=== PATIENT | male | born 1975 | race Caucasian/White ===

== ENCOUNTER → 2018-08-09 11:38 | Outpatient (CLI) | payer OTHER, SELFPAY ==
--- NOTE | 2018-08-09 11:45 | XR_ITS ---
XR forearm RT 2V HISTORY: ITS.REASON: PAIN, PAINFUL PRONATION/SUPINATION ORDERING PHYSICIAN: Bella Celaya PATIENT AGE: 43 years COMPARISON: None FINDINGS: No obvious fracture, dislocation, lytic change or blastic change. Normal mineralization. Unremarkable soft tissues IMPRESSION: Negative forearm
--- NOTE | 2018-08-09 11:45 | XR_ITS ---
XR elbow RT min 3V HISTORY: ITS.REASON: PAIN, PAINFUL PRONATION/SUPINATION ORDERING PHYSICIAN: Bella Celaya FINDINGS: No fracture or dislocation is evident. There are minimal spurring at the coronoid process. Unremarkable soft tissues. IMPRESSION: 1. No acute finding. 2. Minimal osteoarthritic change with minimal spurring of the coronoid process
== END ==
PROVIDERS: PCP Physician Assistant; Visit Provider Physician Assistant
DX: M25.521 Pain in right elbow (principal); M79.631 Pain in right forearm
CPT/HCPCS: 73080; 73090

== ENCOUNTER → 2019-08-08 15:25 | Outpatient (CLI) | payer OTHER, SELFPAY ==
--- NOTE | 2019-08-08 15:30 | XR_ITS ---
PROCEDURE: XR ELBOW LT MIN 3V CLINICAL INDICATION: ROBERT ELBOW PAIN COMPARISON: ELBOWCMRT XR elbow RT min 3V from 08/09/2018 FINDINGS: No fracture or dislocation. No lytic or blastic change. There is normal mineralization. Hypertrophic changes are present at the coronoid process. There are also hypertrophic changes at the olecranon with an enthesophyte at the olecranon with a well-circumscribed lucency at the base of the enthesophyte Other findings:None. IMPRESSION: 1. Mild spurring of the coronoid process. 2. Prominent olecranon enthesophyte with a lucency at its base which could be due to an acute or subacute fracture of the enthesophyte. Dictated by: Rachid Bonilla MD 08/08/2019 16:26 Electronically signed by Rachid Bonilla MD in [place] 08/08/2019 16:26
--- NOTE | 2019-08-08 15:30 | XR_ITS ---
PROCEDURE: XR ELBOW RT MIN 3V CLINICAL INDICATION: ROBERT ELBOW PAIN COMPARISON: ELBOWCMRT XR elbow RT min 3V from 08/09/2018 FINDINGS: No fracture or dislocation. No lytic or blastic change. There is normal mineralization. The joint spaces are well-preserved. No significant degenerative/arthritic changes. No erosive changes evident. Other findings:None. IMPRESSION: Negative right elbow Dictated by: Rachid Bonilla MD 08/08/2019 16:25 Electronically signed by Rachid Bonilla MD in [place] 08/08/2019 16:25
== END ==
PROVIDERS: PCP Nurse Practitioner Family; Visit Provider Nurse Practitioner Family
DX: M25.522 Pain in left elbow (principal); M25.521 Pain in right elbow
CPT/HCPCS: 73080

== ENCOUNTER → 2019-11-21 10:55 | Outpatient (CLI) | payer OTHER, SELFPAY ==
[2019-11-21 12:16] LABS: Ferritin 521 ng/mL (8-388)
[2019-11-21 15:17] LABS: Basophils % 0.6 % (0.1-2.0); Eosinophils # 0.2 K/mm3 (0.0-0.4); Eosinophils % 2.1 % (0.1-12.0); Hematocrit 47.6 % (42.0-52.0); Hemoglobin 15.9 g/dL (14.1-18.0); Lymphocytes # 2.3 K/mm3 (0.7-4.5); Lymphocytes % 33.5 % (10-50); Mean Corpuscular HGB Conc 33.3 g/dL (31.8-35.4); Mean Corpuscular Hemoglobin 29.9 pg (27.0-31.2); Mean Corpuscular Volume 89.8 fl (80-94); Mean Platelet Volume 8.5 fl (7.4-10.4); Monocytes # 0.6 K/mm3 (0.1-1.0); Monocytes % 8.6 % (1.7-9.3); Neutrophils # 3.8 K/mm3 (1.8-7.8); Neutrophils % 55.2 % (37.0-80.0); Platelet Count 308 K/mm3 (142-424); Red Cell Distribution Width 12.9 % (11.5-17.5); White Blood Count 6.8 K/mm3 (4.8-10.8)
[2019-11-21 15:43] LABS: Erythrocyte Sedimentation Rate 7 mm/hr (0-15)
[2019-11-21 17:23] LABS: Alanine Aminotransferase 43 U/L (21-72); Albumin/Globulin Ratio 1.2 (1.1-1.8); Alkaline Phosphatase 80 U/L (46-116); Anion Gap 15.4 mEq/L (5-15); Aspartate Amino Transferase 23 U/L (15-37); Bilirubin,Total 0.7 mg/dL (0.2-1.0); Blood Urea Nitrogen 17 mg/dL (7-18); Calcium 9.1 mg/dL (8.5-10.1); Carbon Dioxide 27 mmol/L (21.0-32.0); Chloride 106 mmol/L (98-107); Creatinine,Serum 1.04 mg/dL (0.70-1.30); Estimated Glomerular Filt Rate 78 ml/min (>60); Ferritin 535 ng/mL (8-388); GFR (African American) 94 ML/MIN (>60); Globulin 3.3 gm/dl (1.3-3.2); Glucose 90 mg/dL (74-106); Potassium 4.4 mmoL/L (3.5-5.1); Sodium 144 mmol/L (137-145); Thyroid Stimulating Hormone 0.67 uIU/ml (0.358-3.740); Total Protein,Serum 7.3 g/dL (6.4-8.2)
[2019-11-21 17:34] LABS: C-Reactive Protein < 0.2 mg/dL (0.0-0.9)
[2019-11-23 07:54] LABS: Iron 110 ug/dL (38-169); UIBC 207 ug/dL (111-343)
[2019-11-23 19:10] LABS: Iron Saturation 35 % (15-55); Transferrin 248 mg/dL (200-370)
[2019-11-25 13:13] LABS: Anti-Centromere B Antibodies <0.2 AI (0.0-0.9); Anti-Jo-1 <0.2 AI (0.0-0.9); Anti-Smith Antibody 0.2 AI (0.0-0.9); Antichromatin Antibodies <0.2 AI (0.0-0.9); Antiscleroderma-70 Antibodies <0.2 AI (0.0-0.9); RNP Antibodies <0.2 AI (0.0-0.9); Sjogren's Anti-SS-A <0.2 AI (0.0-0.9); Sjogren's Anti-SS-B <0.2 AI (0.0-0.9)
[2019-11-25 20:59] LABS: Anti-DNA (DS) Ab Qn <1 IU/mL (0-9)
== END ==
PROVIDERS: Visit Provider Nurse Practitioner Family
DX: E83.10 Disorder of iron metabolism, unspecified (principal); R53.83 Other fatigue; R79.89 Other specified abnormal findings of blood chemistry; G25.81 Restless legs syndrome; G47.00 Insomnia, unspecified; G47.19 Other hypersomnia; G47.30 Sleep apnea, unspecified; G47.9 Sleep disorder, unspecified; R06.81 Apnea, not elsewhere classified; Z68.31 Body mass index [BMI] 31.0-31.9, adult
CPT/HCPCS: 36415; 80053; 82728; 83540; 83550; 84443; 84466; 85025; 85651; 86140; 86225; 86235

== ENCOUNTER → 2019-12-04 20:05 | Outpatient (CLI) | payer OTHER, SELFPAY | PROVIDERS: Visit Provider Nurse Practitioner Family | DX: G47.33 Obstructive sleep apnea (adult) (pediatric) (principal); R40.0 Somnolence; G47.00 Insomnia, unspecified; R06.83 Snoring; R51 Headache; G25.81 Restless legs syndrome | CPT/HCPCS: 95810 ==

== ENCOUNTER → 2020-11-17 13:55 | Outpatient (CLI) | payer OTHER, SELFPAY ==
[2020-11-17 14:16] LABS: Chloride 106 mmol/L (98-107); Potassium 4.6 mmoL/L (3.5-5.1); Sodium 140 mmol/L (136-145)
[2020-11-17 14:18] LABS: Blood Urea Nitrogen 19 mg/dl (9-20); Estimated Glomerular Filt Rate 81 ml/min (>60); GFR (African American) 98 ML/MIN (>60)
[2020-11-17 14:19] LABS: Alanine Aminotransferase 38 U/L (12-78); Albumin Level 4.6 g/dl (3.5-5.0); Albumin/Globulin Ratio 1.5 (1.1-1.8); Alkaline Phosphatase 88 U/L (38-126); Anion Gap 12.6 mEq/L (5-15); Aspartate Amino Transferase 28 U/L (17-59); Bilirubin,Total 0.6 mg/dl (0.2-1.3); Calcium 9.8 mg/dl (8.4-10.2); Carbon Dioxide 26 mmol/L (22.0-30.0); Chol/HDL Ratio 3.7 (1-3.5); Cholesterol 227 mg/dl (140-200); Globulin 3.1 g/dL (1.3-3.2); Glucose 127 mg/dl (74-100); HDL Cholesterol 61 mg/dl (40-60); Total Protein,Serum 7.7 g/dl (6.3-8.2); Triglycerides 187 mg/dl (30-150); VLDL Cholesterol 37 mg/dL (0-40)
[2020-11-17 14:30] LABS: Basophils # 0.1 K/mm3 (0-0.2); Basophils % 0.7 % (0.1-2.0); Eosinophils # 0.2 K/mm3 (0.0-0.4); Hematocrit 47.6 % (42.0-52.0); Hemoglobin 15.8 g/dL (14.1-18.0); Lymphocytes # 2.6 K/mm3 (0.7-4.5); Lymphocytes % 34.6 % (10-50); Mean Corpuscular HGB Conc 33.1 g/dL (31.8-35.4); Mean Corpuscular Hemoglobin 29.7 pg (27.0-31.2); Mean Corpuscular Volume 89.5 fl (80-94); Mean Platelet Volume 8.7 fl (7.4-10.4); Monocytes # 0.6 K/mm3 (0.1-1.0); Monocytes % 7.9 % (1.7-9.3); Neutrophils # 4.1 K/mm3 (1.8-7.8); Neutrophils % 54.9 % (37.0-80.0); Platelet Count 305 K/mm3 (142-424); Red Blood Count 5.32 M/mm3 (4.60-6.20); Red Cell Distribution Width 13.1 % (11.5-17.5); White Blood Count 7.4 K/mm3 (4.8-10.8)
[2020-11-17 14:36] LABS: 25-OH Vitamin D, Total 31.6 ng/mL (30-100)
[2020-11-17 14:51] LABS: Thyroid Stimulating Hormone 0.92 uIU/mL (0.465-4.68)
[2020-11-17 16:02] LABS: Hemoglobin A1C 5.4 % (4.0-6.0)
== END ==
PROVIDERS: Visit Provider Physician Assistant
DX: Z00.00 Encounter for general adult medical examination without abnormal findings (principal); R73.09 Other abnormal glucose; Z79.899 Other long term (current) drug therapy
CPT/HCPCS: 80053; 80061; 82306; 83036; 84439; 84443; 85025

== ENCOUNTER → 2020-11-17 17:46 | Outpatient (CLI) | payer OTHER, SELFPAY | PROVIDERS: PCP Physician Assistant; Visit Provider Physician Assistant | DX: M54.5 Low back pain (principal) ==

== ENCOUNTER → 2020-11-18 13:45 | Outpatient (CLI) | payer OTHER, SELFPAY ==
--- NOTE | 2020-11-18 13:49 | XR_ITS ---
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 No acute fracture or dislocation. No lytic or blastic change. There is degenerative disc disease at L2-L3 and L5-S1. There are mild facet arthritic changes at L5-S1. Hypertrophic changes with sclerosis noted at the SI joint on the left with bony hypertrophy inferiorly. Mild osteoarthritic changes are present involving the hips. Other findings:None. IMPRESSION: 1. Degenerative changes of the lumbar spine as described above. 2. 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
== END ==
PROVIDERS: PCP Physician Assistant; Visit Provider Physician Assistant
DX: M54.5 Low back pain (principal)
CPT/HCPCS: 72110

== ENCOUNTER → 2021-06-15 17:02 | Outpatient (CLI) | payer OTHER, SELFPAY | PROVIDERS: Visit Provider Nurse Practitioner Family | DX: Z20.822 Contact with and (suspected) exposure to COVID-19 (principal); A49.1 Streptococcal infection, unspecified site; J02.0 Streptococcal pharyngitis | CPT/HCPCS: 87070; 87186; U0003 ==

== ENCOUNTER → 2021-10-12 11:35 | Outpatient (CLI) | payer OTHER, SELFPAY | PROVIDERS: Visit Provider Nurse Practitioner | DX: Z20.822 Contact with and (suspected) exposure to COVID-19 (principal) | CPT/HCPCS: C9803; U0003; U0005 ==

== ENCOUNTER → 2022-02-19 07:56 | Outpatient (CLI) | payer OTHER, SELFPAY ==
--- NOTE | 2022-02-19 07:56 | MR_ITS ---
FINAL REPORT CLINICAL HISTORY: chronic low back pain x's 3 years. gotten worse recently. 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 burning sensation in back. numbness, pain and burning radiates down bilateral extremities. worse on right side. FINDINGS: Multiplanar MR imaging of the lumbar spine was performed without contrast. On the sagittal T2-weighted images, disc degeneration is seen at several levels. The vertebral alignment is normal. There is no evidence of fracture. The conus has an unremarkable appearance. L1-2: There is no significant canal stenosis or neural foraminal narrowing. L2-3: An annular bulge is present. There is no significant canal stenosis or neural foraminal narrowing L3-4: An annular bulge is present. There is no significant canal stenosis or neural foraminal narrowing. L4-5: There is no significant canal stenosis or neural foraminal narrowing. L5-S1: An annular bulge is present. There is a central/right paracentral disc protrusion which contacts the S1 nerve roots and mildly displaces the right nerve root. There is mild right neural foraminal narrowing. Note is made of spurring of the sacroiliac joints and of the, left greater than right. IMPRESSION: Multilevel degenerative disc disease most pronounced at L5-S1 with areas of neural foraminal narrowing. Central/right paracentral disc protrusion at L5-S1 contacts the S1 nerve roots and mildly displaces the right nerve root. Reviewed, Interpreted and Dictated by Ivan Geiger III, MD Transcribed by Rika Peterson Authenticated by Ivan Geiger III, MD on 02/21/2022 07:50:39 AM [facility]
== END ==
PROVIDERS: PCP Emergency Medicine; Visit Provider Emergency Medicine
DX: M54.50 Low back pain, unspecified (principal)
CPT/HCPCS: 72148; 76376

== ENCOUNTER → 2022-04-25 11:19 | Outpatient (POV) | payer OTHER, SELFPAY ==
[2022-04-25 13:03] VITALS: BP 135/83; PULSE 53; RESP 18; TEMP 36.8; O2SAT 98; BMI 29.5
--- NOTE | 2022-04-25 14:37 | HMH.PMCON ---
Assessment and Plan (1) Low back pain Status: Acute Category: Medical Code(s): M54.50 - Low back pain, unspecified (2) Lower extremity pain Status: Acute Category: Medical Code(s): M79.606 - Pain in leg, unspecified (3) DDD (degenerative disc disease), lumbar Status: Acute Category: Medical Code(s): M51.36 - Other intervertebral disc degeneration, lumbar region - Assessment and plan all Dx Assessment and Plan for all problems:: Patient has significant pain in his low back radiating to his right lower extremity. Patient was nontender on palpation during exam. His MRI of his lumbar did show degenerative generative disc disease with pronounced L5-S1 areas of neural foraminal narrowing. I have discussed with the patient regarding a lumbar epidural steroid injection based off his symptoms and imaging. Risk and benefits were discussed with the patient the patient would like to proceed forward with this injection at this time. Patient is not currently taking any blood thinners. I have also discussed with the patient regarding starting diclofenac 75 mg twice daily. I have counseled him on not taking any other NSAIDs while taking this medication. Patient will be scheduled for a lumbar epidural steroid injection at L4-L5 at today's visit. Patient has been instructed to contact the clinic with any concerns before the next appointment. Dr. Cedillo has reviewed this note and agrees with this plan of care. This note was dictated using voice recognition software and make contain errors or omissions. HPI - Data of Consult Patient: new to practice Consult date: 04/25/22 Requesting Physician: SHAUN Guillermo Primary Care Provider: Dr. Mcgarry - Consult Narrative Reason for consult: Low back pain, right gluteal pain, right lower extremity pain History of present illness: Mr. Peña is a pleasant 46 year old male presents today as a new patient. He is a referral from Dr. Mcgarry's office. Patient is reporting low back pain, right gluteal pain, right lower extremity pain. He states he has had this pain for couple years now. He rates his pain today as 6 out of 10. He describes the pain as a pressure sensation, that is a constant shooting pain that radiates to his right ankle. He states occasionally he will have similar pain on his left side. He said pain is aggravated by prolonged activity or prolonged sitting. He states being more active does seem to help with his pain. He does do daily home exercises with moderate relief. He has also tried unmn-nue-gallfne Tylenol, ibuprofen and oral steroids with minimal relief. Patient has also tried gabapentin but did not feel like this was helping and felt groggy when he would wake up in the mornings. Patient denies any chiropractor history. Patient has had physical therapy in the past but due to his work schedule it was hard to get scheduled as well as he felt he got no relief from this when he did go. Patient denies any trauma or injury. Patient denies any change to the location or type of pain since it started. Patient has been in the in the past. His Amauri is [id number]. Is been reviewed and is appropriate. CC: SHAUN Guillermo [facility] History I have reviewed the patient's past medical history: Yes Medical History: Reports:: Anxiety, Gastroesophageal Reflux Disease(GERD), Hyperlipidemia Denies:: Diabetes Mellitus Type 2 *Have you ever received a pneumonia vaccine?: Yes *Have you received a flu vaccine this season?: Yes Other Medical History: Reports: Arthritis, Other Other Surgeries: Yes: Hernia Repair, Other - *Social History Smoking Status: Former smoker Alcohol Intake: never Alcohol Intake Frequency:: a few times a week Substance Use Type: denies use *Occupational Status:: other Housing: house Household Members: family *Travel in the last 8 weeks: None - Psychiatric History Pschychiatric History:: Reports:: Anxiety Family Hx:: Coronary Artery Disease Revie
== END ==
PROVIDERS: Visit Provider Student in an Organized Health Care Education/Training Program
DX: M51.36 Other intervertebral disc degeneration, lumbar region (principal); M79.606 Pain in leg, unspecified
CPT/HCPCS: 99202; G0463

== ENCOUNTER 2022-06-07 07:40 | Day surgery (SDC) | payer OTHER, SELFPAY ==
[2022-06-07 07:56] VITALS: BP 144/81; PULSE 44; O2SAT 97
[2022-06-07 08:00] VITALS: BP 140/77; PULSE 49; RESP 20; TEMP 36.6; O2SAT 98; BMI 29.5
[2022-06-07 08:17] VITALS: BP 181/85; PULSE 67; RESP 18; O2SAT 97
[2022-06-07 08:22] VITALS: BP 181/85; PULSE 70; RESP 18; O2SAT 97
--- NOTE | 2022-06-07 08:45 | EXP.PAIN.PRO ---
Procedure Date: 06/07/22 Time: 08:45 Anesthesiologist:: Michael Mccray CRNA Complications:: None Pre-procedure Diagnosis:: Degenerative disc lumbar spine multilevels. Lumbar radiculopathy Post-procedure Diagnosis:: Same Indications for Procedure:: Patient is a very pleasant 46-year-old male who comes our clinic today for his initial lumbar epidural steroid injection at the L4-5 level. Patient planes of low back pain as well as bilateral hip and leg radicular symptoms at times. He rates his pain 6/10 today. Procedure Details:: Procedure: Lumbar epidural steroid injection under fluoroscopy Informed consent was obtained and the risks and benefits of the procedure were explained to the patient. The patient was taken to the procedure room and noninvasive monitors placed, including noninvasive blood pressure cuff and pulse oximeter. The back was viewed using C-arm Fluoroscopy and prepped using Betadine as a cleansing solution and the L4-L5 interspace was palpated. Skin and subcutaneous tissues were anesthetized using lidocaine 1.5% and a 25-gauge needle. After this, an 18-gauge Touhy epidural needle was placed into the L4-L5 interspace and advanced using fluoroscopic guidance and loss of resistance to air until the epidural space was encountered. After confirmation of needle placement in the epidural space, with dye, a solution containing lidocaine 1.5%, 4 mL and Depo-Medrol 80 mg were incrementally injected into the lumbar epidural space. The patient tolerated the procedure well with no complications. The patient was observed in the Pain Clinic and then discharged home neurologically intact. Plan and Disposition:: Patient was discharged without incident.
== END 2022-06-07 08:33 | disposition home or self-care (01) ==
LOC: SC.PAINP 07:42
PROVIDERS: PCP Physician Assistant; Visit Provider Nurse Anesthetist, Certified Registered
DX: M51.16 Intervertebral disc disorders with radiculopathy, lumbar region (principal)
CPT/HCPCS: 62323; J1040

== ENCOUNTER 2022-08-07 20:13 | Emergency (ER) | payer OTHER, SELFPAY ==
[2022-08-07 20:14] VITALS: BP 151/81; PULSE 98; RESP 16; TEMP 36.4; O2SAT 96; BMI 30.7
--- NOTE | 2022-08-07 20:52 | HMH.EDBACK ---
Discharge Plan Disposition Patient Disposition: Home, Self-Care Chief Complaint: Back Pain/Injury Prescriptions Prescriptions: No Action gabapentin 100 mg capsule 100 mg PO TID Qty: 90 4RF atorvastatin 10 mg tablet 10 mg PO QHS Qty: 90 0RF diclofenac sodium 1 % gel 2 g TP QID Qty: 100 0RF Rx Instructions: apply to single elbow, wrist or hand; for hand includes palm/fingers/back of hand lidocaine 5 % adhesive patch,medicated 1 patch TP DAILY Qty: 30 0RF Rx Instructions: leave on most painful area for up to 12 hrs omeprazole 40 mg capsule,delayed release(DR/EC) 40 mg PO DAILY Qty: 90 0RF trazodone 50 mg tablet 100 mg PO QHS 90 Days Qty: 180 1RF prednisone 20 mg tablet 20 mg PO DAILY Qty: 18 0RF Rx Instructions: TID X 3 days, BID X 3 days, QD X 3 days prednisone 20 mg tablet 20 mg PO BID Rx Instructions: administer with food or milk amoxicillin 875 mg tablet 875 mg PO BID diclofenac sodium 75 mg tablet,delayed release (DR/EC) 75 mg PO BID montelukast [Singulair] 10 mg tablet 10 mg PO HS Referrals Follow up/Referrals: Jay Jay Mcgarry MD [Primary Care Provider] - See instructions Clinical Impressions Clinical Impression: Lumbar radiculopathy Instructions Patient Instructions: DI for Low Back Pain, DI for Back Pain With Sciatica Discharge ED Provider: Jay Jay Mcgarry Back Pain HPI General Chief Complaint: Back Pain/Injury Stated Complaint: back pain, RT leg pain Time Seen by Provider: 08/07/22 20:52 Mode of Arrival: Ambulatory Source of Information: Patient, Spouse and Medical Record Limitations: No Limitations Description of Symptoms (Recalled from ER Triage Doc. by RN): pt c/o lumbar pain radiating down rt leg x 10 days. pt has been seen by pcp and given a steroid pack with no relief History of Present Illness HPI Narrative: acute exacerbation of lumbat pain with rad to rt lower ext - has seen pcp and dr viramontes in past MD Complaint: back pain Onset (ago): day(s) Duration: constant Similar Symptoms Previously: Yes Location: lumbar spine Severity: moderate Quality: sharp Radiation: right leg Severity scale (1-10): 6 Exacerbating factors: movement Associated symptoms: denies other symptoms Pertinent Issues R/T Back Pain: Pain Management Services Treatments prior to arrival: NSAIDS, acetaminophen and other Related Data Home Medications Medication Instructions Recorded Confirmed amoxicillin 875 mg tablet 875 mg PO BID antibiotic 06/07/22 06/10/22 diclofenac sodium 75 mg 75 mg PO BID . 06/07/22 06/10/22 tablet,delayed release montelukast 10 mg tablet 10 mg PO HS Allergies 06/07/22 06/10/22 (Singulair) prednisone 20 mg tablet 20 mg PO BID . 06/07/22 06/10/22 Previous Rx's Medication Instructions Recorded atorvastatin 10 mg tablet 10 mg PO QHS hld #90 tabs 06/06/22 diclofenac sodium 1 % topical gel 2 g topical QID . #100 grams 06/06/22 lidocaine 5 % topical patch 1 patch topical DAILY Pain #30 ea 06/06/22 omeprazole 40 mg capsule,delayed 40 mg PO DAILY GERD #90 caps 06/06/22 release trazodone 50 mg tablet 100 mg PO QHS insomnia 90 days 06/06/22 #180 tabs gabapentin 100 mg capsule 100 mg PO TID Pain #90 caps 06/10/22 prednisone 20 mg tablet 20 mg PO DAILY #18 tabs 08/02/22 Allergies Allergy/AdvReac Type Severity Reaction Status Date / Time NO KNOWN ALLERGIES - NKA Allergy Mild Uncoded 06/10/22 15:53 PFSH [facility] Medical History (Updated 08/07/22 @ 21:41 by Jay Jay Mcgarry MD) Back Pain Gastroesophageal reflux disease Insomnia Social History Smoking Status: Never smoker alcohol intake: never substance use type: denies use current occupational status: other Travel in the last 8 weeks: None household members: family housing: house ROS Obtained: Yes All systems reviewed & no additional complaints except as doc
[2022-08-07 21:45] VITALS: BP 151/81; PULSE 54; RESP 16; TEMP 36.7; O2SAT 98
== END 2022-08-07 21:50 | disposition home or self-care (01) ==
PROVIDERS: Emergency Provider Emergency Medicine; PCP Emergency Medicine
DX: M54.16 Radiculopathy, lumbar region (principal); Z79.899 Other long term (current) drug therapy; K21.9 Gastro-esophageal reflux disease without esophagitis; G47.00 Insomnia, unspecified
CPT/HCPCS: 96374; 96375; 96376; 99284; J2405

== ENCOUNTER 2022-08-22 15:11 | Outpatient (RCR) | payer OTHER, SELFPAY | END 2022-08-22 16:30 | disposition home or self-care (01) | LOC: PT 15:11 | PROVIDERS: Visit Provider Physician Assistant | DX: M79.661 Pain in right lower leg (principal); S86.111A Strain of other muscle(s) and tendon(s) of posterior muscle group at lower leg level, right leg, initial encounter | CPT/HCPCS: 97760 ==

== ENCOUNTER → 2022-08-29 11:22 | Outpatient (POV) | payer OTHER, SELFPAY ==
--- NOTE | 2022-08-29 11:50 | EXP.PAIN.SOA ---
[facility] Pain Management SOAP Note Subjective:: Patient is a pleasant 47-year-old male who presents today for follow-up. We are currently treating the patient for degenerative disc disease of lumbar spine with lumbar radiculopathy symptoms. Today the patient rates his pain a 5 out of 10. He states the pain is all in his low back along the right side that radiates down his buttocks to his toes. Patient describes this as a achy, throbbing sensation that is worse with increased activity. Patient states that around August 02 he went on a 5 mile run along a trail in [facility] and approximately the next day started having significant pain at this site. Patient denies any significant trauma. Patient states that he was prescribed oral steroids which gave no improvement. Patient later was seen by Dr. Mcgarry's office who prescribed pain medication however he states that he did not notice significant relief with this either. Patient states this is affecting his ability to perform activities of daily living. He states he frequently cannot tolerate prolonged walking due to the pain. He is interested in injective therapy at today's visit. Patient has also tried heat and ice and topicals with no improvement of his symptoms. Patient continues to do at home exercising and stretching but is limited due to his worsening pain symptoms. Patient has previously had a lumbar epidural steroid injection at L4-L5 on 06/07/2022 that provided significant improvement however only lasted approximately 2-1/2 weeks. Patient states he was able to get back to his daily routine following this injection. His Amauri is [id number]. It has been reviewed and appropriate. Review of Systems: General: No recent weight changes, no fever, no sleep disturbances Respiratory: No cough, no shortness of air, no recurring pulmonary infections Cardiovascular/peripheral vascular: No chest pain, no palpitations, no edema, no shortness of breath Gastrointestinal: No new onset incontinence, normal bowel movements reported Genitourinary: No new onset incontinence Musculoskeletal: Low back pain, right leg pain Psychiatric: [Normal mood/affect] Neurological: [Denies weakness in extremities], [denies balance issues] Objective:: Physical Exam: General: Alert and oriented x3, no acute distress, pleasant and cooperative Lungs: Respirations even and unlabored, symmetrical chest expansion Eyes: PERRL Musculoskeletal: Flexion and extension of lumbar [spine] somewhat guarded secondary to pain, [antalgic gait noted]. Extreme point tenderness on right superior cluneal nerve Neurological: Speech clear, no gross sensory deficit Assessment:: Degenerative disc disease of lumbar spine with lumbar radiculopathy symptoms, right cluneal nerve root impingement Plan:: Patient is experiencing significant pain in his low back along the right side that radiates down his right buttocks to his toes along the right side. Patient did have limited range of motion of his lumbar spine during today's visit as well as extreme point tenderness along his right superior cluneal nerve. Patient has tried and failed oral medications, heat and ice, topicals, at home stretching and exercise. I have discussed with the patient that he may benefit from a diagnostic right cluneal nerve block. Risk and benefits were discussed with the patient. He would like to proceed forward with this plan of care. I have also discussed with the patient that if he does not get significant improvement of his symptoms following this injection that we may plan on a transforaminal epidural steroid injection on the right side. Patient is not on any blood thinners. We will schedule him for a diagnostic right cluneal nerve block. [facility] Medical History (Updated 08/23/22 @ 01:08 by Jay Jay Mcgarry MD) Back Pain Gastroesophageal reflux disease Insomnia Social History Smoking Status: Never smoker alcohol int
[2022-08-29 12:00] VITALS: BP 152/84; PULSE 53; RESP 18; O2SAT 97; BMI 29.5
== END ==
PROVIDERS: PCP Emergency Medicine; Visit Provider Nurse Practitioner Family
DX: M51.16 Intervertebral disc disorders with radiculopathy, lumbar region (principal)
CPT/HCPCS: 99212; G0463

== ENCOUNTER 2022-09-06 14:32 | Day surgery (SDC) | payer OTHER, SELFPAY ==
[2022-09-06 14:46] VITALS: BP 131/70; PULSE 50; RESP 18; TEMP 36.2; O2SAT 98; BMI 29.5
[2022-09-06 15:08] VITALS: BP 144/85; PULSE 73; RESP 18; O2SAT 98
[2022-09-06 15:15] VITALS: BP 133/80; PULSE 57; RESP 18; O2SAT 98
--- NOTE | 2022-09-27 14:13 | EXP.PAIN.PRO ---
Procedure Date: 09/06/22 Time: 11:00 Anesthesiologist:: Michael Mccray CRNA Complications:: None Pre-procedure Diagnosis:: Degenerative disc disease lumbar spine multilevels. Lumbar radiculopathy Post-procedure Diagnosis:: Same. Indications for Procedure:: This patient is a pleasant 47-year-old male that comes our clinic today for a scheduled superior cluneal nerve block. However, after further discussion with the patient it seems as though a lumbar epidural steroid injection of the L4-5 level would be appropriate. Patient has had this block in the past with significant improvement. He is requesting a repeat of the L4-5 lumbar epidural steroid injection. I think this is reasonable given the fact he has low back pain as well as bilateral hip and leg radicular symptoms. Procedure Details:: Procedure: Lumbar epidural steroid injection under fluoroscopy Informed consent was obtained and the risks and benefits of the procedure were explained to the patient. The patient was taken to the procedure room and noninvasive monitors placed, including noninvasive blood pressure cuff and pulse oximeter. The back was viewed using C-arm Fluoroscopy and prepped using Chloraprep as a cleansing solution and the L4-L5 interspace was palpated. Skin and subcutaneous tissues were anesthetized using lidocaine 1.5% and a 25-gauge needle. After this, an 18-gauge Touhy epidural needle was placed into the L4-L5 interspace and advanced using fluoroscopic guidance and loss of resistance to air until the epidural space was encountered. After confirmation of needle placement in the epidural space, with dye, a solution containing normal saline, 3 mL and Depo-Medrol 80 mg were incrementally injected into the lumbar epidural space. The patient tolerated the procedure well with no complications. The patient was observed in the Pain Clinic and then discharged home neurologically intact. Plan and Disposition:: Patient was discharged without incident.
== END 2022-09-06 15:15 | disposition home or self-care (01) ==
LOC: SC.PAINP 14:33
PROVIDERS: PCP Emergency Medicine; Visit Provider Nurse Anesthetist, Certified Registered
DX: M51.16 Intervertebral disc disorders with radiculopathy, lumbar region (principal)
CPT/HCPCS: 62323; J1040

== ENCOUNTER → 2022-09-13 14:18 | Outpatient (CLI) | payer OTHER, SELFPAY ==
--- NOTE | 2022-09-13 14:19 | US_ITS ---
FINAL REPORT CLINICAL HISTORY: right calf pain FINDINGS: US EXTREMITY, NONVASCULAR, LIMITED, ANATOMIC SPECIFIC Limited sonographic images were obtained of the right calf. The mid calf musculature is somewhat heterogeneous of uncertain significance. No mass or fluid collection is identified. IMPRESSION: Somewhat heterogeneous appearance of the mid calf musculature of uncertain significance. Myositis or muscle injury cannot be excluded. If indicated, MRI could further evaluate. Reviewed, Interpreted and Dictated by Ivan Geiger III, MD Transcribed by Guero Cisse Authenticated and [facility]
== END ==
PROVIDERS: PCP Physician Assistant; Visit Provider Physician Assistant
DX: M79.661 Pain in right lower leg (principal)
CPT/HCPCS: 76882

== ENCOUNTER 2022-11-15 08:47 | Outpatient (RCR) | payer OTHER, SELFPAY ==
--- NOTE | 2022-11-15 10:38 | HMH.PTOPEV ---
PT Outpatient Evaluation Rehab PT Outpatient Evaluation Start: 11/15/22 08:57 Freq: Status: Active Protocol: Document 11/15/22 08:57 DELL (Rec: 11/15/22 10:35 DELL [id number]) E-signed By Vilma Ghosh, PT Outpatient Therapy Subjective History Subjective History Pt is a 47 y/o male referred to PT for right leg pain and calf tear. Pt reports onset of right calf pain and exacerbation of right-sided sciatica after a run at the end of July. Pt reports he has a history of right-sided sciatic flare ups treated with injections and also has a history of right Achilles tendon repair ~4 years. Pt reports initially his calf was painful, felt squishy and was unable to contract the muscle with noted atrophy compared to the other leg. Pt denies any noted swelling. Pt also reports onset of numbness /tingling of the lateral aspect of the right foot since injury that comes and goes randomly. Pt reports in the past couple weeks he has started noticing improvements in pain, abiltiy to walk and is now able to contract his calf. Pt reports he had an MRI of the the right lower leg at [facility] showing increased signal intensity around the gastroc/soleus with possible myositis and/or tears. Pt reports he continues to have constant low back pressure as well but denies pain in the posterior leg. Pt reports he had a lumbar MRI last year in February, per report in records it shows Multilevel degenerative disc disease most pronounced at L5- S1 with areas of neural foraminal narrowing. Central/ right paracentral disc
== END 2022-11-15 08:50 | disposition home or self-care (01) ==
LOC: PT 08:47
PROVIDERS: Visit Provider Orthopaedic Surgery
DX: M79.661 Pain in right lower leg (principal); S86.811A Strain of other muscle(s) and tendon(s) at lower leg level, right leg, initial encounter
CPT/HCPCS: 97163

== ENCOUNTER → 2022-11-15 12:46 | Outpatient (CLI) | payer OTHER, SELFPAY ==
--- NOTE | 2022-11-15 12:50 | XR_ITS ---
FINAL REPORT CLINICAL HISTORY: bilateral elbow pain FINDINGS: Right elbow Three views were obtained. There is no acute fracture or dislocation. The joint spaces appear normal. No soft tissue abnormality is identified. IMPRESSION: No acute process. Reviewed, Interpreted and Dictated by Marvin Lockhart MD Transcribed by Rika Peterson Authenticated and [facility]
--- NOTE | 2022-11-15 12:50 | XR_ITS ---
FINAL REPORT CLINICAL HISTORY: bilateral shoulder pain FINDINGS: Left shoulder Three views were obtained. There is no acute fracture or dislocation. There are mild hypertrophic changes of osteoarthritis of the AC joint. There is an osteophyte along the undersurface of the acromion, asymmetrically more evident on the left and right. No soft tissue abnormality is identified. IMPRESSION: No acute process. Reviewed, Interpreted and Dictated by Marvin Lockhart MD Transcribed by Rika Peterson Authenticated and [facility]
--- NOTE | 2022-11-15 12:50 | XR_ITS ---
FINAL REPORT CLINICAL HISTORY: bilateral shoulder pain FINDINGS: Right shoulder Three views were obtained. There is no acute fracture or dislocation. There are mild hypertrophic changes of osteoarthritis of the AC joint. No soft tissue abnormality is identified. IMPRESSION: No acute process. Reviewed, Interpreted and Dictated by Marvin Lockhart MD Transcribed by Rika Peterson Authenticated and . [facility]
--- NOTE | 2022-11-15 12:50 | XR_ITS ---
FINAL REPORT CLINICAL HISTORY: bilateral elbow pain COMPARISON: 07/21/2019 FINDINGS: Left elbow Three views were obtained. There is no acute fracture or dislocation. There is a large osteophyte arising from the posterior margin of the olecranon. Small ossific densities are seen in the joint space, may represent intra-articular loose bodies. No acute soft tissue abnormality is identified. IMPRESSION: Findings may represent small intra-articular loose bodies. Reviewed, Interpreted and Dictated by Marvin Lockhart MD Transcribed by Rika Peterson Authenticated and [facility]
== END ==
PROVIDERS: PCP Physician Assistant; Visit Provider Physician Assistant
DX: M25.511 Pain in right shoulder (principal); M25.512 Pain in left shoulder; M25.521 Pain in right elbow; M25.522 Pain in left elbow
CPT/HCPCS: 73030; 73080

== ENCOUNTER → 2022-11-28 12:37 | Outpatient (CLI) | payer OTHER, SELFPAY ==
--- NOTE | 2022-11-28 12:38 | MR_ITS ---
FINAL REPORT CLINICAL HISTORY: Left elbow has osteophyte and loose bodies. lateral sided elbow pain. pain when bending and extending. symptoms xyears. FINDINGS: Multiplanar MR imaging of the left elbow was performed without contrast. The bony structures are intact without evidence of fracture, bone bruise or marrow edema. There is no evidence of osteochondral lesion. There are mild degenerative changes. There is a posterior olecranon enthesophyte. The ligaments appear intact. There is a small intrasubstance tear at the origin of the common extensor tendon. The common flexor tendon is intact. The biceps tendon is intact. There is a partial tear at the insertion of the triceps tendon. The brachialis tendon is intact. The musculature has an unremarkable appearance. No soft tissue mass or cyst is identified. There is a small joint effusion. No focal abnormality is identified of the ulnar nerve. IMPRESSION: Mild degenerative change with posterior olecranon enthesophyte. Partial tear at the insertion of the triceps tendon. Small intrasubstance tear at the origin of the common extensor tendon. Small joint effusion. Reviewed, Interpreted and Dictated by Ivan Geiger III, MD Transcribed by Guero Cisse Authenticated and [facility]
== END ==
PROVIDERS: PCP Physician Assistant; Visit Provider Physician Assistant
DX: M25.522 Pain in left elbow (principal)
CPT/HCPCS: 73221

== ENCOUNTER → 2023-07-21 15:12 | Outpatient (POV) | payer OTHER, SELFPAY ==
--- OUTSIDE RECORDS SUMMARY | 2023-07-21 15:14 | XMS_ITS | Clinical Summary ---
Author Name Unknown Address [address] [place] [place] [address] Phone Organization [facility] , [facility] Address [address] [place] [place] [address] Phone Care Team Providers Care Banjo Repair Person Name Role Phone Raphael OCONNOR, Yasmani Rodriguez Unavailable [phone] Isha Maria PA-C Primary Care Provider [phone] Reason for Visit and Chief Complaint The Chief Complaint is: Bilateral elbow pain Problems Includes: Problems addressed during this encounter and other active Problems Current Visit Onset Date Resolved Date Provider Jorge A gonzalez Status Bilateral Elbow Joint Pain 12/14/2022 Yasmani Lim MD Active Plan of Treatment NON SURGICAL PLAN: I reviewed the MRI images that were brought in with the patient of the left elbow which demonstrate a partial thickness triceps tear. I recommended he rest his elbow and take intermittent oral anti inflammatory's is he can tolerate them. As far as his right elbow, he also has a history of right shoulder issues. He had a discussion about treatment options. I believe his shoulder is a component of this as well. We will get him set up into specific therapy to work on this. We will follow this closely and see him back in 6 weeks for reassessment. All questions have been answered. - Last Documented On 12/20/2022 6:14PM ; [facility], [facility] Future Appointments Date Time Location Provi nuvia Follow Up 07/31/2023 3:00PM [facility] Orth[facility] paedics [facility] Senthil Garibay PA-C Instructions to patient Lose weight Last Documented On 10:38AM ; [facility], [facility] Ass
--- OUTSIDE RECORDS SUMMARY | 2023-07-21 15:14 | XMS_ITS | Clinical Summary ---
Author Name Unknown Address [address] [place] [address] [place] [address] Phone Organization [facility] , [facility] Address [address] [place] [address] Phone Care Team Providers Care Electrician Technician Name Role Phone Raphael OCONNOR, Yasmani Rodriguez Unavailable [phone] Isha Maria PA-C Primary Care Provider [phone] Reason for Visit and Chief Complaint Physician Specified Problems Includes: Problems addressed during this encounter and other active Problems All Visits Onset Date Resolved Date Provider Condition S tatus Bilateral Elbow Joint Pain 12/14/2022 Yasmani Lim MD Active Plan of Treatment Future Appointments Date Time Location Provi nuvia Follow Up 07/31/2023 3:00PM [facility] paedics [facility] B Deuce Garibay PA-C Assessments Includes: Assessments from this encounter No Assessments Recorded Medical Equipment - Implanted Devices Includes: Current Devices No Medical Equipment Recorded Medications Includes: Medications discussed during this encounter and other current Medications Current Medications (continue as prescribed) Atorvastatin Calcium 10 MG Oral Tablet 12/07/2022 Pr ovider: Diagnosis: Montelukast Sodium 10 MG Oral Tablet 12/03/2022 Prov ider: Diagnosis:
--- OUTSIDE RECORDS SUMMARY | 2023-07-21 15:14 | XMS_ITS | Clinical Summary ---
Author Name Unknown Address [address] [place] [address] Phone Organization [facility] , [facility] Address [address] [place] [address] Phone Care Team Providers Care Primer Inspector Name Role Phone Raphael OCONNOR, Yasmani Rodriguez Unavailable [phone] Isha Maria PA-C Primary Care Provider [phone] Reason for Visit and Chief Complaint The Chief Complaint is: Bilateral elbow pain Problems Includes: Problems addressed during this encounter and other active Problems All Visits Onset Date Resolved Date Provider Condition S tatus Bilateral Elbow Joint Pain 12/14/2022 Yasmani Lim MD Active Plan of Treatment I explained injection side effects locally which would include depigmentation and atrophy due to subcutaneous fat being dissolved. These will be permanent and he wishes to proceed with an injectionThe patient understands the risks and benefits of this injection. Consent was given. The medial portion of the elbow was prepped with alcohol. Aspiration confirmed that no vascular bed had been entered. I injected 40 mg of Kenalog and 4 cc of lidocaine into the origin of the common flexor tendon. The patient tolerated this well - Last Documented On 02/02/2023 10:26AM ; [facility], [facility] Future Appointments Date Time Location Provi nuvia Follow Up 07/31/2023 3:00PM [facility] paedics [facility] Senthil Garibay PA-C Instructions to patient Lose weight Last Documented On 3 9:45AM ; [facility], [facility] Assessments Includes: Assessments from this encounter
--- OUTSIDE RECORDS SUMMARY | 2023-07-21 15:14 | XMS_ITS | Clinical Summary ---
Author Name Unknown Address [address] [place] [address] Phone Organization [facility] , [facility] Address [address] [place] [place] [address] Phone Care Team Providers Care Loan Analyst Name Role Phone Raphael OCONNOR, Yasmani Rodriguez Unavailable [phone] Isha Maria PA-C Primary Care Provider [phone] Reason for Visit and Chief Complaint The Chief Complaint is: Bilateral elbow pain Problems Includes: Problems addressed during this encounter and other active Problems All Visits Onset Date Resolved Date Provider Condition S tatus Bilateral Elbow Joint Pain 12/14/2022 Yasmani Lim MD Active Plan of Treatment we will reinject both elbows. If he fails these would consider further imaging. We will see him back as scheduled.The patient understands the risks and benefits of this injection. Consent was given. The medial portion of the elbow was prepped with alcohol. Aspiration confirmed that no vascular bed had been entered. I injected 10 mg of Kenalog and 3 cc of lidocaine into the origin of the common flexor tendon. The patient tolerated this well The patient understands the risks and benefits of this injection. Consent was given. The medial portion of the elbow was prepped with alcohol. Aspiration confirmed that no vascular bed had been entered. I injected 10 mg of Kenalog and 3 cc of lidocaine into the origin of the common flexor tendon. The patient tolerated this well - Last Documented On 04/25/2023 2:41PM ; [facility] Future Appointments Date Time Location Provi nuvia Follow Up 07/31/2023 3:00PM [facility] paedics [facility] B Deuce Garibay PA-C Instructions to patient
--- OUTSIDE RECORDS SUMMARY | 2023-07-21 15:14 | XMS_ITS ---
Care Plan - [facility], [facility] Created on: July 21, 2023 Diaz Peña : 1975 Sex: Male Author Name Unknown Address [address] [place] [address] Phone Organization [facility] Address [address] [place] [address] Phone Care Team Providers Care Poultry Farmer Meat Name Role Phone Raphael OCONNOR, Yasmani Rodriguez Unavailable Isha Maria PA-C Primary Care Provider [phone]
[2023-07-21 15:18] VITALS: BP 161/78; PULSE 60; RESP 20; BMI 29.5
--- NOTE | 2023-07-21 15:33 | EXP.PAIN.SOA ---
[facility] Pain Management SOAP Note Subjective:: This patient is a pleasant 48-year-old male that comes our clinic today for follow-up injection regarding chronic low back pain as well as right hip and leg radicular symptoms. Patient scribes low back as constant, dull, aching. Patient rates his pain 04/17. Patient had lumbar epidural steroid injection at the L4-5 level 09/06/2022. Patient is done very well up until a month ago. His pain is returning in the low lumbar area as well as the right hip and leg radicular symptoms to the foot. We discussed repeating lumbar epidural steroid injection to L4-5 level. Answered his questions. He wishes to proceed. I think this is very reasonable given the fact that previous injection rendered nearly 1 year of relief. Objective:: Patient is awake alert [place] x3. No acute distress. Flexion-extension lumbar spine somewhat guarded secondary to pain. Deep tendon reflexes upper and lower extremities normal. Motor strength upper and lower extremities normal. There is no gross sensory deficit. Gait is normal. Assessment:: Degenerative disc lumbar spine multilevels. Lumbar radiculopathy Plan:: We will plan lumbar epidural steroid injection at the L4-5 level. [facility] Disclaimer: The information contained in this section may have been updated after the patient was seen, as this information can be updated by other users. Medical History (Updated 06/03/23 @ 14:43 by SHAUN Polo) Back Pain Bilateral elbow joint pain Gastroesophageal reflux disease Insomnia Left carpal tunnel syndrome Family History Other No significant family history Social History Smoking Status: Never smoker alcohol intake: never substance use type: denies use current occupational status: employed Travel in the last 8 weeks: None household members: family housing: house
== END ==
PROVIDERS: PCP Physician Assistant; Visit Provider Nurse Anesthetist, Certified Registered
DX: M51.16 Intervertebral disc disorders with radiculopathy, lumbar region (principal)
CPT/HCPCS: 99212; G0463

== ENCOUNTER → 2023-09-04 07:47 | Outpatient (CLI) | payer OTHER, SELFPAY ==
--- OUTSIDE RECORDS SUMMARY | 2023-09-04 07:49 | XMS_ITS ---
Care Plan - [facility], [facility] Created on: September 04, 2023 Diaz Peña : 1975 Sex: Male Author Name Unknown Address [address] [place] [address] Phone Organization [facility] Address [address] [place] [address] Phone Care Team Providers Care Procurement Analyst Name Role Phone Raphael OCONNOR, Yasmani Rodriguez Unavailable Isha Maria PA-C Primary Care Provider [phone]
--- OUTSIDE RECORDS SUMMARY | 2023-09-04 07:49 | XMS_ITS | Clinical Summary ---
Author Name Unknown Address [address] [place] [address] Phone Organization [facility] , [facility] Address [address] [place] [address] Phone Care Team Providers Care Conference Coordinator Name Role Phone Raphael OCONNOR, Yasmani Rodriguez Unavailable [phone] Isha Maria PA-C Primary Care Provider [phone] Reason for Visit and Chief Complaint The [...] - Last Documented On 02/02/2023 10:26AM ; [facility], [facility] Instructions to patient Lose weight Last Documented On 9:45AM ; [facility], [facility] Assessments Includes: Assessments from this encounter Findings right medial epicondylitis - Last Documented On 02/02/2023 10:26AM ; [facility], [facility] Instructions Includes: Instructions from this encounter
--- OUTSIDE RECORDS SUMMARY | 2023-09-04 07:49 | XMS_ITS ---
Author Name Unknown Address [address] [place] [address] Phone Organization [facility] Address [address] [place] [address] Phone Care Team Providers Care Subassembler Name Role Phone Raphael OCONNOR, Yasmani Rodriguez Unavailable [phone] Isha Maria PA-C Primary Care Provider [phone] Problems Includes: Active, inactive, and resolved Problems All Visits Onset Date Resolved Date Provider Condition S tatus Bilateral Elbow Joint Pain 12/14/2022 Yasmani Lim MD Active Plan of Treatment Instructions to patient Lose weight Last Documented On 3 2:07PM ; [facility] Lose weight Last Documented On 3 9:45AM ; [facility] Lose weight Last Documented On 3 10:38AM ; [facility] Assessments Includes: Assessments for all patient encounters No Assessments Recorded Instructions Includes: Instructions for all patient encounters Instructions to patient Lose weight Last Documented On 3 2:07PM ; [facility] Lose weight Last Documented On 3 9:45AM ; [facility] Lose weight Last Documented On
--- OUTSIDE RECORDS SUMMARY | 2023-09-04 07:49 | XMS_ITS | Clinical Summary ---
Author Name Unknown Address [address] [place] [address] Phone Organization [facility] , [facility] Address [address] [place] [address] Phone Care Team Providers Care Janitorial Manager Name Role Phone Raphael OCONNOR, Yasmani Rodriguez Unavailable [phone] Isha Maria PA-C Primary Care Provider [phone] Reason for Visit and Chief Complaint The [...] - Last Documented On 04/25/2023 2:41PM ; [facility], [facility] Instructions to patient Lose weight Last Documented On 2:07PM ; [facility], [facility] Assessments Includes: Assessments from this encounter Findings
--- OUTSIDE RECORDS SUMMARY | 2023-09-04 07:50 | XMS_ITS | Clinical Summary ---
Author Name Unknown Address [address] [place] [address] Phone Organization [facility] , [facility] Address [address] [place] [address] Phone Care Team Providers Care Truckman Name Role Phone Raphael OCONNOR, Yasmani Rodriguez Unavailable [phone] Isha Maria PA-C Primary Care Provider [phone] Reason for Visit and Chief Complaint Physician Specified Problems Includes: Problems addressed during this encounter and other active Problems All Visits Onset Date Resolved Date Provider Condition S tatus Bilateral Elbow Joint Pain 12/14/2022 Yasmani Lim MD Active Plan of Treatment No Plan of Treatment Recorded Assessments Includes: Assessments from this encounter No Assessments Recorded Medical Equipment - Implanted Devices Includes: Current Devices No Medical Equipment Recorded Medications Includes: Medications discussed during this encounter and other current Medications Current Medications (continue as prescribed) Atorvastatin Calcium 10 MG Oral Tablet 12/07/2022 Pr ovider: Diagnosis: Montelukast Sodium 10 MG Oral Tablet 12/03/2022 Prov ider: Diagnosis: Ofloxacin 0.3% Ophthalmic Solution 11/24/2022 Provid er: Diagnosis:
--- OUTSIDE RECORDS SUMMARY | 2023-09-04 07:50 | XMS_ITS | Clinical Summary ---
Author Name Unknown Address [address] [place] [address] [place] [address] Phone Organization [facility] , [facility] Address [address] [place] [address] Phone Care Team Providers Care Automotive Instructor Name Role Phone Raphael OCONNOR, Yasmani Rodriguez Unavailable [phone] Isha Maria PA-C Primary Care Provider [phone] Reason for Visit and Chief Complaint The [...] - Last Documented On 12/20/2022 6:14PM ; [facility], [facility] Instructions to patient Lose weight Last Documented On 10:38AM ; [facility], [facility] Assessments Includes: Assessments from this encounter Findings Right elbow - Last Documented On 12/20/2022 6:14PM ; [facility], [facility] Left elbow partial thickness triceps
--- NOTE | 2023-09-04 07:53 | CA_ITS ---
APPROVED REPORT EXAM: Comprehensive 2D, Doppler, and color-flow Echocardiogram Marker Assembler: Philomena Hardy RT(R) Ht: 5 ft 9 in Wt: 201lbs BSA: 2.07 BP: 132/88 mmHg Indications: palpitations, SOB, fatigue, hyperlipidemia, asthma 2D Dimensions LVOT 2.04 cm (M/F) 1.5-2.5 LVEF (Paredes's) 67.60 % M: 52 - 72 LV Volume 113.60 mL M: 62 - 150 LV Volume Index 54.88 mL/m2 M: 34 - 74 LA Volume 42.70 mL LA Volume Index 20.63 mL/m2 (M/F) 16-34 M-Mode Dimensions RVDd 3.00 cm (0.9-2.6) LA Diam 3.51 cm (1.9-4.0) LVDd 6.12 cm (3.5-5.7) Ao Diam 2.93 cm (2.0-3.7) LVDs 4.52 cm (3.5-5.7) IVSd 0.76 cm (0.6-1.1) PWd 0.76 cm (0.6-1.1) EF (Teich) 50.40% FS 26.10% EDV (Teich) 188.30 mL ESV (Teich) 93.40 mL LV Diastology E Decel Time 210.00 (160-240 msec) E/A Ratio 1.4 MED E' 7.00 (< 7 cm/sec) E'/MED E' Ratio 22.93 (>14) LAT E' 11.60 (<10 cm/sec) E/LAT E' Ratio 13.84 (>14) Mitral Valve MV E Max Yamil. 161.00 (40-130 cm/s) MV A Velocity 117.00 (40-130 cm/s) E/A Ratio 1.37 MV Decel. Time 210.00 (160-240 ms) MV PHT 62.00 ms Left Ventricle The left ventricle is normal size. The left ventricular systolic function is normal. The left ventricular ejection fraction is within the normal range. There is normal left ventricular wall thickness. There is normal LV segmental wall motion. The left ventricular diastolic function is normal. LVEF is 55%. Right Ventricle The right ventricle is mildly dilated. The right ventricular systolic function is normal. Atria The left atrium size is normal. The right atrium size is normal. There is no Doppler evidence of interatrial shunt. Aortic Valve The aortic valve opens well. There is no aortic valvular stenosis. No aortic regurgitation is present. Mitral Valve The mitral valve is normal in structure. No evidence of mitral valve stenosis. Mild mitral regurgitation. Tricuspid Valve The tricuspid valve leaflets are thin and pliable. Trace tricuspid regurgitation. There is insufficient TR jet to estimate RVSP. Pulmonic Valve The pulmonary valve is normal in structure. Trace pulmonic regurgitation. Great Vessels The aortic root is normal in size. The ascending aorta is normal in size. IVC is normal in size and collapses >50% with inspiration. Pericardium There is no pericardial effusion. Other Information Study Quality: Fair Conclusion Normal biventricular systolic function. Mild RV dilation. Mild MR. Electronically signed by : Liane Warner MD 09/10/2023 19:35:17
--- NOTE | 2023-09-04 08:26 | PC.NURSE ---
Pre and Post Spirometry completed without incident. Albuterol 0.083% given via HHN, per written protocol, Pt tolerated tx well.
--- NOTE | 2023-09-04 08:39 | ECG_ITS ---
APPROVED REPORT Exam: Resting ECG HR:60 bpm ECG Measurements Heart Rate 60 AXES IL 135 P 15 QRSd 96 QRS 107 QT 413 T 18 QTc 415 Conclusion SINUS RHYTHM RIGHT AXIS DEVIATION [QRS AXIS > 100] ABNORMAL ECG UNCONFIRMED REPORT Electronically signed by : Drew Rolle MD 09/06/2023 18:29:03
--- NOTE | 2023-09-04 08:48 | XR_ITS ---
FINAL REPORT CLINICAL HISTORY: BRONCHITIS,ISCHEMIC HEART DISEASE COMPARISON: None FINDINGS: There is no evidence of effusion or other pleural disease. The mediastinum has a normal appearance. The cardiac silhouette is unremarkable. IMPRESSION: Unremarkable chest exam. Reviewed, Interpreted and Dictated by Zeina Conley MD Transcribed by Kaci Borjas Authenticated and . [facility]
== END ==
PROVIDERS: PCP Physician Assistant; Visit Provider Chiropractor
DX: J44.0 Chronic obstructive pulmonary disease with (acute) lower respiratory infection (principal); I25.9 Chronic ischemic heart disease, unspecified
CPT/HCPCS: 71046; 93005; 93306; 94060

== ENCOUNTER → 2023-09-26 07:33 | Outpatient (CLI) | payer OTHER, SELFPAY ==
--- NOTE | 2023-09-26 | XR_ITS ---
FINAL REPORT CLINICAL HISTORY: ARTHRITIS FINDINGS: 3 views of the left shoulder were obtained. There is no acute fracture or dislocation. There are mild hypertrophic changes at the AC joint. There are no soft tissue abnormalities. IMPRESSION: No acute process. Reviewed, Interpreted and Dictated by Marvin Lockhart MD Transcribed by Guero Cisse Authenticated and [facility]
--- NOTE | 2023-09-26 | XR_ITS ---
FINAL REPORT CLINICAL HISTORY: ARTHRITIS FINDINGS: AP and lateral views were obtained. There is no acute fracture. There is no malalignment. The disc spaces are maintained. There is mild anterior osteophyte formation at L2-L3, L4-L5 and L5-S1. IMPRESSION: No acute process. Reviewed, Interpreted and Dictated by Marvin Lockhart MD Transcribed by Guero Cisse Authenticated and . [facility]
--- OUTSIDE RECORDS SUMMARY | 2023-09-26 07:37 | XMS_ITS | Clinical Summary ---
Author Name Unknown Address [address] [place] [address] [place] [address] Phone Organization [facility] , [facility] Address [address] [place] [address] Phone Care Team Providers Care Sebd Teacher Name Role Phone Raphael OCONNOR, Yasmani Rodriguez Unavailable [phone] Isha Maria PA-C Primary Care Provider [phone] Reason for Visit and Chief Complaint The [...] - Last Documented On 12/20/2022 6:14PM ; [facility], [facility] Instructions to patient Lose weight Last Documented On 10:38AM ; [facility], [facility] Assessments Includes: Assessments from this encounter Findings Right elbow - Last Documented On 12/20/2022 6:14PM ; [facility], [facility] Left elbow partial thickness triceps
--- OUTSIDE RECORDS SUMMARY | 2023-09-26 07:37 | XMS_ITS ---
Care Plan - [facility], [facility] Created on: September 26, 2023 Diaz Peña : 1975 Sex: Male Author Name Unknown Address [address] [place] [address] Phone Organization [facility], [facility] Address [address] [place] [address] Phone Care Team Providers Care Product Management Manager Name Role Phone Raphael OCONNOR, Yasmani Rodriguez Unavailable Isha Maria PA-C Primary Care Provider [phone]
--- OUTSIDE RECORDS SUMMARY | 2023-09-26 07:37 | XMS_ITS ---
Author Name Unknown Address [address] [place] [address] Phone Organization [facility] Address [address] [place] [address] Phone Care Team Providers Care Motorcycle Fabricator Name Role Phone Raphael OCONNOR, Yasmani Rodriguez Unavailable [phone] Isha Maria PA-C Primary Care Provider [phone] Problems Includes: Active, inactive, and resolved Problems All Visits Onset Date Resolved Date Provider Condition S tatus Bilateral Elbow Joint Pain 12/14/2022 Yasmani Lim MD Active Plan of Treatment Instructions to patient Lose weight Last Documented On 3 2:07PM ; [facility] Lose weight Last Documented On 3 9:45AM ; [facility] Lose weight Last Documented On 3 10:38AM ; [facility] Assessments Includes: Assessments for all patient encounters No Assessments Recorded Instructions Includes: Instructions for all patient encounters Instructions to patient Lose weight Last Documented On 3 2:07PM ; [facility] Lose weight Last Documented On 3 9:45AM ; [facility] Lose weight Last Documented On
--- OUTSIDE RECORDS SUMMARY | 2023-09-26 07:37 | XMS_ITS | Clinical Summary ---
Author Name Unknown Address [address] [place] [address] Phone Organization [facility] Address [address] [place] [address] Phone Care Team Providers Care Housecalls Nurse Name Role Phone Raphael OCONNOR, Yasmani Rodriguez Unavailable [phone] Isha Maria PA-C Primary Care Provider [phone] Reason for Visit and Chief Complaint The [...] - Last Documented On 02/02/2023 10:26AM ; [facility], [facility] Instructions to patient Lose weight Last Documented On 9:45AM ; [facility] Assessments Includes: Assessments from this encounter Findings right medial epicondylitis - Last Documented On 02/02/2023 10:26AM ; [facility], [facility] Instructions Includes: Instructions from this encounter
--- OUTSIDE RECORDS SUMMARY | 2023-09-26 07:37 | XMS_ITS | Clinical Summary ---
Author Name Unknown Address [address] [place] [address] Phone Organization [facility] Address [address] [place] [address] Phone Care Team Providers Care Ice Cream Maker Name Role Phone Raphael OCONNOR, Yasmani Rodriguez Unavailable [phone] Isha Maria PA-C Primary Care Provider [phone] Reason for Visit and Chief Complaint The [...] - Last Documented On 04/25/2023 2:41PM ; [facility], [facility] Instructions to patient Lose weight Last Documented On 2:07PM ; [facility], [facility] Assessments Includes: Assessments from this encounter Findings
--- OUTSIDE RECORDS SUMMARY | 2023-09-26 07:37 | XMS_ITS | Clinical Summary ---
Author Name Unknown Address [address] [place] [address] Phone Organization [facility] Address [address] [place] [address] Phone Care Team Providers Care Toy Parts Former Supervisor Name Role Phone Raphael OCONNOR, Yasmani Rodriguez Unavailable [phone] Isha Maria PA-C Primary Care Provider [phone] Reason for Visit and Chief Complaint Physician [...]
--- NOTE | 2023-09-26 07:40 | XR_ITS ---
FINAL REPORT CLINICAL HISTORY: ARTHRITIS FINDINGS: 3 views of the right shoulder were obtained. There is no acute fracture or dislocation. The joint spaces are intact. There are no soft tissue abnormalities. IMPRESSION: No acute process. Reviewed, Interpreted and Dictated by Marvin Lockhart MD Transcribed by Guero Cisse Authenticated and [facility]
== END ==
PROVIDERS: PCP Physician Assistant; Visit Provider Chiropractor
DX: M13.80 Other specified arthritis, unspecified site (principal)
CPT/HCPCS: 72100; 73030

== ENCOUNTER 2024-11-20 19:54 | Emergency (ER) | payer OTHER, SELFPAY ==
[2024-11-20 20:00] VITALS: BP 162/89; PULSE 61; RESP 18; TEMP 36.8; O2SAT 97; BMI 30.2
--- NOTE | 2024-11-20 20:11 | HMH.EDGENADL ---
Discharge Plan Disposition Patient Disposition: Home, Self-Care Condition: Good Prescriptions Prescriptions: New doxycycline hyclate 100 mg capsule 100 mg PO BID 10 Days Qty: 20 0RF prednisone 50 mg tablet 50 mg PO DAILY 5 Days Qty: 5 0RF albuterol sulfate 90 mcg/actuation HFA aerosol inhaler 1 inh inhalation Q4H PRN (Reason: shortness of breath or wheezing) Qty: 8.5 0RF ziewvpmrksthjuf-tmzcbspwe-OG [Bromfed DM] 2-30-10 mg/5 mL syrup 5 ml PO Q4H PRN (Reason: sinus symptoms) Qty: 118 0RF No Action azithromycin 250 mg tablet See Rx Instructions PO .COMPLEX Qty: 6 0RF Rx Instructions: For 250 mg dose pack: take 500 mg today (day 1), then 250 mg for 4 days (days 2-5) PO hydrocodone-chlorpheniramine 10-8 mg/5 mL suspension,extended rel 12 hr 5 ml PO Q12H PRN (Reason: cough) Qty: 115 0RF atorvastatin 10 mg tablet See Rx Instructions .ROUTE .COMPLEX Qty: 90 0RF Dose Instruction: TAKE 1 TABLET BY MOUTH EVERY DAY AT BEDTIME FOR HLD Rx Instructions: TAKE 1 TABLET BY MOUTH EVERY DAY AT BEDTIME FOR HLD montelukast 10 mg tablet See Rx Instructions .ROUTE .COMPLEX Qty: 90 4RF Dose Instruction: TAKE 1 TABLET BY MOUTH EVERY NIGHT AT BEDTIME Rx Instructions: TAKE 1 TABLET BY MOUTH EVERY NIGHT AT BEDTIME omeprazole 40 mg capsule,delayed release(DR/EC) 40 mg PO DAILY 90 Days Qty: 90 0RF trazodone 50 mg tablet See Rx Instructions .ROUTE .COMPLEX Qty: 180 0RF Dose Instruction: TAKE 2 TABLETS BY MOUTH EVERY NIGHT AT BEDTIME Rx Instructions: TAKE 2 TABLETS BY MOUTH EVERY NIGHT AT BEDTIME Referrals Follow up/Referrals: Ger Duvall MD [Primary Care Provider] - See instructions Activity Restrictions/Add. Instructions Additional Instructions/Restrictions: Follow-up with your PCP within 48 hours for recheck of your symptoms. If your symptoms worsen or you have new symptoms follow-up with your PCP sooner or return to the ER. I have sent prescriptions into your pharmacy. Please take the steroids till they are gone. Clinical Impressions Clinical Impression: Post-viral cough syndrome, Influenza A Print Language Print Language: Wolof Discharge ED Provider: Patrick Ricardo General Adult HPI <SHAUN Brantley - Last Filed: 11/20/24 21:54> General Chief complaint: Upper Respiratory Infection Stated complaint: SOA Flu + x2 wks Time Seen by Provider: 11/20/24 20:11 Mode of Arrival: Ambulatory Source of Information: Patient Limitations: No Limitations Description of Symptoms (Recalled from ER Triage Doc. by RN): pt states he was diagnosed with the flu 2 weeks ago. He is still feeling foggy and extremely congested in his nose and chest. History of Present Illness HPI narrative: Patient presents for worsening cough congestion shortness of breath. Patient was diagnosed with influenza 2 weeks ago. He initially did well however he is now having worsening cough and shortness of breath with exertion. He denies fever chills hemoptysis hematochezia melena nausea vomit diarrhea. Patient is a non-smoker and has no history of pulmonary or cardiovascular disease Related Data Previous Rx's ?Medication ?Instructions ?Recorded atorvastatin 10 mg tablet See Rx Instructions .Route 07/02/24 .COMPLEX #90 tabs montelukast 10 mg tablet See Rx Instructions .Route 07/02/24 .COMPLEX #90 tabs omeprazole 40 mg capsule,delayed 40 mg PO DAILY 90 days #90 caps 07/02/24 release trazodone 50 mg tablet See Rx Instructions .Route 07/02/24 .COMPLEX #180 tabs azithromycin 250 mg tablet See Rx Instructions PO .COMPLEX #6 09/20/24 tabs hydrocodone 10 mg-chlorpheniramine 5 ml PO Q12H PRN cough #115 mL 09/20/24 8 mg/5 mL oral susp extend.rel 12hr albuterol sulfate 90 mcg/actuation 1 inh inhalation Q4H PRN shortness 11/20/24 aerosol inhaler of breath or wheezing #8.5 grams dfgajxtvseulelm-bcdtoorlwpjuimf-UX 5 ml PO Q4H PRN sinus symptoms 11/20/24 2 mg-30 mg-10 mg/5 mL oral syrup #118 mL (Bromfed DM) doxycycline hyclate 100 mg capsule 100 mg PO BID 10 days #20 caps 11/20/24 prednisone 50 mg tablet 50 mg PO DAILY 5 days #5 tabs 11/20/24 Allergies Allergy/AdvReac Type Severity Reaction Status Date / Time No Known Allergies Allergy Verified 09/20/24 13:06 [facility] <SHAUN Brantley - Last Filed: 11/20/24 21:54> [facility] Disclaimer: The information contained in this section may have been updated after the patient was seen, as this information can be updated by other users. Medical History DDD (degenerative disc disease), lumbar Left carpal tunnel syndrome Bilateral elbow joint pain Insomnia Gastroesophageal reflux disease Back Pain Family History Other No significant family history Social History Smoking Status: Never smoker alcohol intake: never substance use type: denies use current occupational status: employed Travel in the last 8 weeks: None household members: family housing: house Have you lived/traveled outside US in past 30 days?: No Contact w/someone who lives/traveled outside US past 30 days?: No Exposure to someone with infectious disease in past 14 days?: No Do you have a fever (greater than 100.4 F or 38 C)?: No Have you tested positive for COVID-19: No Exposed to someone with COVID-19 in past 14 days?: No Do you have a sore throat?: No Do you have a cough?: No Do you have any weakness?: No Do you have any diarrhea?: No Are you experiencing any unusual bleeding?: No Do you have any muscle aches/pain?: No Do you have any abdominal pain?: No Are you experiencing loss of taste or smell?: No Other Medical History Have you received the Flu Vaccine for this season: Yes Have you received the Pneumonia Vaccine: Yes <SHAUN Brantley - Last Filed: 11/20/24 21:54> ROS Obtained: Yes Systems reviewed as appropriate & no additional complaints except as documented Physical Exam <SHAUN Brantley - Last Filed: 11/20/24 21:54> General General appearance: alert and in no apparent distress Respiratory Respiratory exam: Absent normal lung sounds bilaterally (Coarse prolonged bronchial cough breath sounds heard to bases) Cardiovascular Cardiovascular exam: Present regular rate Neurological Exam Neurological exam: Present alert and oriented X3 Medical Decision Making <SHAUN Brantley - Last Filed: 11/20/24 21:54> Medical Records Medical records reviewed: Yes I reviewed the patient's medical records. Screening: Per USPSTF and CDC recommendations, given the prevalence of disease in our region, it is our hospital?s policy to screen for HIV and viral Hepatitis for all patients aged 18 and over and those with ongoing risk factors. [place] Inquiry Pt receiving controlled substance: No Vital Signs: 11/20/24 20:00 11/20/24 21:52 11/20/24 21:52 Temperature 98.3 F Temperature Source Oral Pulse Rate 56 L 55 L Pulse Rate [Right] 61 Respiratory Rate 18 Blood Pressure Blood Pressure [Right Arm] 162/89 H Blood Pressure Mean [Right Arm] 113 02 Sat by Pulse Oximetry 97 Oxygen Delivery Method Room Air 11/20/24 22:03 Temperature 98.2 F Temperature Source Oral Pulse Rate 64 Pulse Rate [Right] Respiratory Rate 18 Blood Pressure 150/102 H Blood Pressure [Right Arm] Blood Pressure Mean [Right Arm] 02 Sat by Pulse Oximetry Oxygen Delivery Method Room Air Lab Data Lab results reviewed: Yes I reviewed the patient's lab results. Lab Results 11/20/24 20:05: SARS-CoV-2 (PCR) Not detected, Influenza A Untype (PCR) Detected A, Influenza Type B (PCR) Not detected 11/20/24 20:15: VBG pH 7.35, VBG pCO2 45.3, VBG pO2 38.2, VBG HCO3 24.3, VBG Total CO2 25.7, VBG O2 Saturation 73.3 H, VBG Base Excess -1.4, VBG Lactic Acid 1.7 11/20/24 20:39: WBC 8.0, RBC 4.88, Hgb 14.3, Hct 41.6 L, MCV 85.2, MCH 29.3, MCHC 34.4, RDW 12.0, Plt Count 236, MPV 10.0, Neut % (Auto) 67.4, Lymph % (Auto) 23.0, [place] % (Auto) 8.5, Eos % (Auto) 0.5, Baso % (Auto) 0.3, Neut # (Auto) 5.4, Lymph # (Auto) 1.8, [place] # (Auto) 0.7, Eos # (Auto) 0.0, Baso # (Auto) 0.0, PT 9.3, INR 0.83 L, Sodium 139, Potassium 3.6, Chloride 103, Carbon Dioxide 29, Anion Gap 10.6, BUN 13, Creatinine 0.90, Estimated Creat Clear 132, Estimated GFR 90, Est GFR ( Amer) 109, Glucose 94, Calcium 8.3 L, Magnesium 1.7, Total Bilirubin 0.8, AST 42, ALT 42, Alkaline Phosphatase 98, Troponin I < 0.01, NT-Pro-B Natriuret Pep < 20.0, Total Protein 6.9, Albumin 4.3, Globulin 2.6, Albumin/Globulin Ratio 1.7, Procalcitonin 0.073 11/20/24 20:39 11/20/24 20:39 Orders (Tests/Meds): ED MEDICATIONS Discontinued Medications Generic Name Dose Route Start Last Admin Trade Name Freq PRN Reason Stop Dose Admin Acetaminophen 1,000 mg 11/20/24 20:14 11/20/24 20:31 Acetaminophen 500mg Tab PO 11/20/24 20:15 1,000 mg ONCE ONE Administration Albuterol/Ipratropium 3 ml 11/20/24 20:14 11/20/24 21:44 Ipratropium/Albuterol 3 Ml Neb IH 11/20/24 20:15 3 ml ONCE ONE Administration Dexamethasone Sodium Phosphate 10 mg 11/20/24 20:14 11/20/24 20:31 Dexamethasone 4mg/Ml 5ml Mdv IV 11/20/24 20:15 10 mg ONCE ONE Administration Iopamidol 70 ml 11/20/24 20:49 11/20/24 20:52 Iopamidol-370 (76%);100ml Bottle IV 11/20/24 20:50 70 ml ONCE ONE Administration Ketorolac Tromethamine 15 mg 11/20/24 20:14 11/20/24 20:30 Ketorolac 30mg/Ml Vial IV 11/20/24 20:15 15 mg ONCE ONE Administration Sodium Chloride 50 ml 11/20/24 20:49 11/20/24 20:52 0.9 % Sodium Chloride 50 Ml Vial IV 11/20/24 20:50 50 ml ONCE ONE Administration Sodium Chloride 10 ml 11/20/24 20:49 11/20/24 20:53 Sodium Chloride 0.9% 10ml Syr (Rad Only) IV 11/20/24 20:50 10 ml ONCE ONE Administration ORDERS Category Date Time Status CT angio chest PE protocol Stat Cat Scan 11/20/24 20:14 Completed BNP [NT Pro Brain Natriuretic Pep.] Stat Lab 11/20/24 20:39 Completed CBC w/Auto Diff [Complete Blood Count Auto Diff] Stat Lab 11/20/24 20:39 Completed CMP [Comprehensive Metabolic Panel] Stat Lab 11/20/24 20:39 Completed INR [Prothrombin Time INR] Stat Lab 11/20/24 20:39 Completed Magnesium Stat Lab 11/20/24 20:39 Completed Procalcitonin Stat Lab 11/20/24 20:39 Completed Rapid PCR Covid and Flu A/B Stat Lab 11/20/24 20:05 Completed Trop I [Troponin I] Stat Lab 11/20/24 20:39 Completed Troponin I Q3H Lab 11/20/24 23:15 Ordered VBG [Venous Blood Gas] Stat RT 11/20/24 20:15 Completed Medical Decision Narrative: In summary patient is a 49-year-old male who presents to the emergency department for evaluation of post viral cough syndrome. Patient is hemodynamically stable upon arrival, afebrile. Physical exam is remarkable for clear breath sounds heard to the bases however patient has a very coarse bronchial cough with increased tactile fremitus when he does. Differential diagnosis includes pneumonia versus bronchitis versus pulmonary embolism versus CHF etc. Initial workup will be conducted with hematologic labs CT scan PE protocol. Initial interventions include Toradol Tylenol Decadron. Initial workup reviewed by me shows that his hematologic labs are actually reassuring with a normal white count with no neutrophilic shift VBG of 7.35 with no hypercarbia and a negative troponin negative NT proBNP negative procalcitonin infirmed flu A. My informal interpretation of his CT scan PE protocol shows no evidence of thrombus but does show mosaic type pattern indicative of likely pulmonary edema versus atypical infection but no focal infiltrate. Upon repeat evaluation patient reported improvement after DuoNeb and initial interventions. Given this the duration of his cough I will treat the patient with doxycycline for atypical superinfection as well as steroids Bromfed and a handheld inhaler. Patient vies to follow-up with PCP within 48 hours for recheck of his symptoms sooner if worsen or return to the ER as needed <Patrick Ricardo MD - Last Filed: 11/20/24 22:12> Vital Signs: 11/20/24 20:00 11/20/24 21:52 11/20/24 21:52 Temperature 98.3 F Temperature Source Oral Pulse Rate 56 L 55 L Pulse Rate [Right] 61 Respiratory Rate 18 Blood Pressure Blood Pressure [Right Arm] 162/89 H Blood Pressure Mean [Right Arm] 113 02 Sat by Pulse Oximetry 97 Oxygen Delivery Method Room Air 11/20/24 22:03 Temperature 98.2 F Temperature Source Oral Pulse Rate 64 Pulse Rate [Right] Respiratory Rate 18 Blood Pressure 150/102 H Blood Pressure [Right Arm] Blood Pressure Mean [Right Arm] 02 Sat by Pulse Oximetry Oxygen Delivery Method Room Air Lab Data Lab Results 11/20/24 20:05: SARS-CoV-2 (PCR) Not detected, Influenza A Untype (PCR) Detected A, Influenza Type B (PCR) Not detected 11/20/24 20:15: VBG pH 7.35, VBG pCO2 45.3, VBG pO2 38.2, VBG HCO3 24.3, VBG Total CO2 25.7, VBG O2 Saturation 73.3 H, VBG Base Excess -1.4, VBG Lactic Acid 1.7 11/20/24 20:39: WBC 8.0, RBC 4.88, Hgb 14.3, Hct 41.6 L, MCV 85.2, MCH 29.3, MCHC 34.4, RDW 12.0, Plt Count 236, MPV 10.0, Neut % (Auto) 67.4, Lymph % (Auto) 23.0, [place] % (Auto) 8.5, Eos % (Auto) 0.5, Baso % (Auto) 0.3, Neut # (Auto) 5.4, Lymph # (Auto) 1.8, [place] # (Auto) 0.7, Eos # (Auto) 0.0, Baso # (Auto) 0.0, PT 9.3, INR 0.83 L, Sodium 139, Potassium 3.6, Chloride 103, Carbon Dioxide 29, Anion Gap 10.6, BUN 13, Creatinine 0.90, Estimated Creat Clear 132, Estimated GFR 90, Est GFR ( Amer) 109, Glucose 94, Calcium 8.3 L, Magnesium 1.7, Total Bilirubin 0.8, AST 42, ALT 42, Alkaline Phosphatase 98, Troponin I < 0.01, NT-Pro-B Natriuret Pep < 20.0, Total Protein 6.9, Albumin 4.3, Globulin 2.6, Albumin/Globulin Ratio 1.7, Procalcitonin 0.073 Orders (Tests/Meds): ED MEDICATIONS Discontinued Medications Generic Name Dose Route Start Last Admin Trade Name Freq PRN Reason Stop Dose Admin Acetaminophen 1,000 mg 11/20/24 20:14 11/20/24 20:31 Acetaminophen 500mg Tab PO 11/20/24 20:15 1,000 mg ONCE ONE Administration Albuterol/Ipratropium 3 ml 11/20/24 20:14 11/20/24 21:44 Ipratropium/Albuterol 3 Ml Neb IH 11/20/24 20:15 3 ml ONCE ONE Administration Dexamethasone Sodium Phosphate 10 mg 11/20/24 20:14 11/20/24 20:31 Dexamethasone 4mg/Ml 5ml Mdv IV 11/20/24 20:15 10 mg ONCE ONE Administration Iopamidol 70 ml 11/20/24 20:49 11/20/24 20:52 Iopamidol-370 (76%);100ml Bottle IV 11/20/24 20:50 70 ml ONCE ONE Administration Ketorolac Tromethamine 15 mg 11/20/24 20:14 11/20/24 20:30 Ketorolac 30mg/Ml Vial IV 11/20/24 20:15 15 mg ONCE ONE Administration Sodium Chloride 50 ml 11/20/24 20:49 11/20/24 20:52 0.9 % Sodium Chloride 50 Ml Vial IV 11/20/24 20:50 50 ml ONCE ONE Administration Sodium Chloride 10 ml 11/20/24 20:49 11/20/24 20:53 Sodium Chloride 0.9% 10ml Syr (Rad Only) IV 11/20/24 20:50 10 ml ONCE ONE Administration ORDERS Category Date Time Status CT angio chest PE protocol Stat Cat Scan 11/20/24 20:14 Completed BNP [NT Pro Brain Natriuretic Pep.] Stat Lab 11/20/24 20:39 Completed CBC w/Auto Diff [Complete Blood Count Auto Diff] Stat Lab 11/20/24 20:39 Completed CMP [Comprehensive Metabolic Panel] Stat Lab 11/20/24 20:39 Completed INR [Prothrombin Time INR] Stat Lab 11/20/24 20:39 Completed Magnesium Stat Lab 11/20/24 20:39 Completed Procalcitonin Stat Lab 11/20/24 20:39 Completed Rapid PCR Covid and Flu A/B Stat Lab 11/20/24 20:05 Completed Trop I [Troponin I] Stat Lab 11/20/24 20:39 Completed Troponin I Q3H Lab 11/20/24 23:15 Ordered VBG [Venous Blood Gas] Stat RT 11/20/24 20:15 Completed Medical Decision Narrative: In summary patient is a 49-year-old male who presents to the emergency department for evaluation of post viral cough syndrome. Patient is hemodynamically stable upon arrival, afebrile. Physical exam is remarkable for clear breath sounds heard to the bases however patient has a very coarse bronchial cough with increased tactile fremitus when he does. Differential diagnosis includes pneumonia versus bronchitis versus pulmonary embolism versus CHF etc. Initial workup will be conducted with hematologic labs CT scan PE protocol. Initial interventions include Toradol Tylenol Decadron. Initial workup reviewed by me shows that his hematologic labs are actually reassuring with a normal white count with no neutrophilic shift VBG of 7.35 with no hypercarbia and a negative troponin negative NT proBNP negative procalcitonin infirmed flu A. My informal interpretation of his CT scan PE protocol shows no evidence of thrombus but does show mosaic type pattern indicative of likely pulmonary edema versus atypical infection but no focal infiltrate. Upon repeat evaluation patient reported improvement after DuoNeb and initial interventions. Given this the duration of his cough I will treat the patient with doxycycline for atypical superinfection as well as steroids Bromfed and a handheld inhaler. Patient vies to follow-up with PCP within 48 hours for recheck of his symptoms sooner if worsen or return to the ER as needed I was consulted by the ALONDRA, and we discussed the complexity of the problems being addressed. I approved the treatment and management plan for this patient's care in the Emergency Department, thus performing a substantive portion of the medical decision making. Patrick Ricardo MD Critical Care <SHAUN Brantley - Last Filed: 11/20/24 21:54> Critical Care Time Critical Care Time: Yes Attestation: On 11/20/24, the high probability of a clinically significant, sudden or life threatening deterioration of the following system(s) required my full and direct attention, intervention and personal management. The time I documented below is in addition to time spent performing reported procedures but includes the following listed in this critical care notation. Total Time Total Critical Care Time: 35
--- NOTE | 2024-11-20 20:14 | CT_ITS ---
PROCEDURE INFORMATION: Exam: CTA Chest With Contrast Exam date and time: 11/20/2024 8:49 PM Age: 49 years old Clinical indication: Dyspnea; Additional info: Post flu dyspnea and cough for 2 weeks TECHNIQUE: Imaging protocol: Computed tomographic angiography of the chest with contrast. Exam focused on the arteries. 3D rendering (Not supervised by radiologist): MIP and/or 3D reconstructed images were created by the technologist. Radiation optimization: All CT scans at this facility use at least one of these dose optimization techniques: automated exposure control; mA and/or kV adjustment per patient size (includes targeted exams where dose is matched to clinical indication); or iterative reconstruction. Contrast material: ISOVUE; Contrast volume: 70 ml; Contrast route: INTRAVENOUS (IV); COMPARISON: CR XR CHEST 2V 09/04/2023 8:54 AM FINDINGS: Pulmonary arteries: Limited evaluation of segmental/subsegmental pulmonary artery secondary to suboptimal contrast opacification and motion artifact. Within the limits of the exam, no definitively identifiable pulmonary artery embolism. Aorta: Unremarkable. No aortic aneurysm. No aortic dissection. Lungs: Focal area of right upper lobe superior segment granulomatous scarring with traction bronchiectasis adjacent to the major fissure. Mosaic attenuation of the lungs, most evident within the lower lobes. No masses. 5 mm left lower lobe calcified granuloma. Mild diffuse bronchial wall thickening. Pleural spaces: Unremarkable. No pneumothorax. No pleural effusion. Heart: Unremarkable. No cardiomegaly. No pericardial effusion. Coronary arteries: Coronary artery calcifications. Lymph nodes: Small calcified hilar lymph nodes. Spleen: Small calcified granuloma Bones/joints: Degenerative changes. No acute fracture. Soft tissues: Unremarkable. IMPRESSION: 1. Limited evaluation of segmental/subsegmental pulmonary artery secondary to suboptimal contrast opacification and motion artifact. Within the limits of the exam, no definitively identifiable pulmonary artery embolism. 2. Mild bronchitis. Lower lobe predominant mosaic attenuation of the lungs, which may be seen with infection, pulmonary edema, or other small airways process in the acute setting.
--- NOTE | 2024-11-20 20:15 | PC.NURSE ---
Rounding done, patient resting comfortably
[2024-11-20 20:18] LABS: Coronavirus 19, PCR Not Detected (NotDetected); Influenza B, PCR Not Detected (NotDetected)
[2024-11-20] MEDS: KETOROLAC 30MG/ML VIAL 15 MG IV (20:30)
[2024-11-20] MEDS: ACETAMINOPHEN 500MG TAB 1000 MG PO (20:31)
[2024-11-20] MEDS: DEXAMETHASONE 4MG/ML 5ML MDV 10 MG IV (20:31)
[2024-11-20 20:46] LABS: Influenza A, PCR Detected (NotDetected)
[2024-11-20] MEDS: IOPAMIDOL-370 (76%);100ML BOTTLE 70 ML IV (20:52)
[2024-11-20] MEDS: 0.9 % SODIUM CHLORIDE 50 ML VIAL IV (20:52)
[2024-11-20] MEDS: SODIUM CHLORIDE 0.9% 10ML SYR (RAD ONLY) 10 ML IV (20:53)
[2024-11-20 20:54] LABS: Lactate Venous 1.7 mmol/L (0.4-2.0); VBG Base Excess -1.4 mmol/L (-2.4-2.3); VBG HCO3 24.3 mmol/L (23-30); VBG Oxygen Saturation 73.3 % (50-70); VBG PCO2 45.3 mmol/L (35-51); VBG PH 7.35 mmol/L (7.31-7.41); VBG PO2 38.2 mmol/L (28-40); VBG Total CO2 25.7 mmol/L (23-27)
[2024-11-20 20:58] LABS: Albumin Level 4.3 g/dl (3.5-5.0); Chloride 103 mmol/L (98-107); Potassium 3.6 mmoL/L (3.5-5.1); Sodium 139 mmol/L (136-145)
[2024-11-20 21:01] LABS: Alanine Aminotransferase 42 U/L (12-78); Albumin/Globulin Ratio 1.7 (1.1-1.8); Alkaline Phosphatase 98 U/L (38-126); Anion Gap 10.6 mEq/L (5-15); Aspartate Amino Transferase 42 U/L (17-59); Bilirubin,Total 0.8 mg/dl (0.2-1.3); Blood Urea Nitrogen 13 mg/dl (9-20); Carbon Dioxide 29 mmol/L (22.0-30.0); Creatinine Clearance Estimated 132 mL/min (50-200); Estimated Glomerular Filt Rate 90 ml/min (>60); GFR (African American) 109 ML/MIN (>60); Globulin 2.6 g/dL (1.3-3.2); Total Protein,Serum 6.9 g/dl (6.3-8.2)
[2024-11-20 21:02] LABS: Calcium 8.3 mg/dl (8.4-10.2); Glucose 94 mg/dl (74-100)
[2024-11-20 21:07] LABS: Basophils % 0.3 % (0.1-2.0); Eosinophils % 0.5 % (0.1-12.0); Hematocrit 41.6 % (42.0-52.0); Hemoglobin 14.3 g/dL (14.1-18.0); Lymphocytes # 1.8 K/mm3 (0.7-4.5); Mean Corpuscular HGB Conc 34.4 g/dL (31.8-35.4); Mean Corpuscular Hemoglobin 29.3 pg (27.0-31.2); Mean Corpuscular Volume 85.2 fl (80-94); Monocytes # 0.7 K/mm3 (0.1-1.0); Monocytes % 8.5 % (1.7-9.3); Neutrophils # 5.4 K/mm3 (1.8-7.8); Neutrophils % 67.4 % (37.0-80.0); Platelet Count 236 K/mm3 (142-424); Red Blood Count 4.88 M/mm3 (4.60-6.20)
[2024-11-20 21:14] LABS: INR 0.83 (0.9-1.1); Prothrombin Time 9.3 seconds (9.2-12.1); Troponin I < 0.01 ng/ml (0.00-0.034)
[2024-11-20 21:22] LABS: NT Pro Brain Natriuretic Pep. < 20.0 pg/mL (0-125)
[2024-11-20 21:41] LABS: Procalcitonin 0.073 ng/mL (0.0-2.0)
[2024-11-20 21:42] LABS: Magnesium 1.7 mg/dl (1.6-2.3)
[2024-11-20] MEDS: IPRATROPIUM/ALBUTEROL 3 ML NEB IH (21:44)
[2024-11-20 21:52] VITALS: PULSE 55; PULSE 56
[2024-11-20 22:03] VITALS: BP 150/102; PULSE 64; RESP 18; TEMP 36.8; O2SAT 97
== END 2024-11-20 22:08 | disposition home or self-care (01) ==
PROVIDERS: Physician Assistant; Emergency Provider Emergency Medicine; PCP Family Medicine
DX: J10.1 Influenza due to other identified influenza virus with other respiratory manifestations (principal); R05.8 Other specified cough; R05.9 Cough, unspecified; R09.81 Nasal congestion; R06.09 Other forms of dyspnea
CPT/HCPCS: 71275; 80053; 82803; 83735; 83880; 84145; 84484; 85025; 85610; 87636; 96374; 96375; 99285; J1100; J1885; J7620; Q9967